=== PATIENT | male | born 1965 | race Caucasian/White ===

== ENCOUNTER 2018-07-09 02:50 | Emergency (ER) | payer OTHER ==
[~2018-07-09] VITALS: Ht 195.6 cm; Wt 122.5 kg
[2018-07-09] MEDS ORDERED: INTELENCE200 MG PO (03:04)
[2018-07-09] MEDS ORDERED: RITONAVIR100 MG PO (03:04)
[2018-07-09] MEDS ORDERED: ISENTRESS400 MG PO (03:04)
[2018-07-09] MEDS ORDERED: SUDOGEST60 MG PO (03:05)
[2018-07-09] MEDS ORDERED: ALTOPREV40 MG PO (03:06)
[2018-07-09] MEDS ORDERED: VENTOLIN HFA18 GM (03:06)
--- NOTE | 2018-07-09 21:36 | EKG ---
[facility] [address] [place], [place] [address] Signed Normal sinus rhythm Normal ECG No previous ECGs available Confirmed by KARIN BROWN MD ([id number]) on 07/09/2018 9:36:40 PM Electronically Signed By: KARIN BROWN MD 07/09/18 2136 PATIENT NAME: ANICETO CEDENO LYNETTE Electrocardiogram DATE OF : 67 PHYSICIAN: KARIN BORWN MD REPORT #: [id number] REPORT IS CONFIDENTIAL AND NOT TO BE RELEASED WITHOUT AUTHORIZATION
== END 2018-07-09 04:37 | disposition home or self-care (01) ==
LOC: ED 02:50
DX: R07.9 Chest pain, unspecified (principal); F17.200 Nicotine dependence, unspecified, uncomplicated; Z88.5 Allergy status to narcotic agent; Z88.0 Allergy status to penicillin; Z79.899 Other long term (current) drug therapy
CPT/HCPCS: 71045; 80053; 84484; 85025; 93005; 93010; 99285; J7030

== ENCOUNTER 2024-07-13 18:00 | Emergency (ER) | payer OTHER ==
[~2024-07-13] VITALS: Ht 195.6 cm; Wt 102.8 kg
[~2024-07-13 18:00] MED LIST: ALTOPREV40 MG PO; INTELENCE200 MG PO; ISENTRESS400 MG PO; RITONAVIR100 MG PO; SUDOGEST60 MG PO; VENTOLIN HFA18 GM
--- OUTSIDE RECORDS SUMMARY | 2024-07-13 18:04 | XMS ---
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 No recent Security Events currently on file CRITERIA MET - Group Notification CARE PROVIDERS -[facility] Dentist: Loss Prevention And Safety Manager Current [place] PHONE: [phone] -[facility] Dentist: Loss Prevention And Safety Manager Current [place] PHONE: [phone] -Ricky- Dentist: Loss Prevention And Safety Manager Current [facility] PHONE: [phone] CHUCKY GILL [facility]/[place]: [facility] PHONE: Unknown EMMANUEL SIMMONS Physician Supervisor Floor Assembly Current PHONE: [phone] Yasir has no Care Guidelines for this patient. Rosangela VISIT COUNT (12 MO.) 1 NAILA Beard TOTAL 1 NOTE: Visits indicate total known visits. ED/UCC VISIT TRACKING (12 MO.) 07/13/2024 18:01 NA[place]A [place] TYPE: Emergency COMPLAINT: - CHEST PAIN INPATIENT VISIT TRACKING (12 MO.) No inpatient visits to display in this time frame [email or web address]
[2024-07-13 18:13] LABS: HEMATOCRIT 46.5 % (35.0-50.0); HEMOGLOBIN 15.3 g/dL (12.0-18.0); MCH 31.4 (27-36); MCHC 32.8 g/dl (30-36); MCV 95.6 fl (81-99); PLATELET COUNT 188 K/uL (140-440); RBC 4.87 M/ul (4.3-5.7); RDW 14.7 (10.5-15.0)
[2024-07-13] MEDS ORDERED: NITROGLYCERIN 0.4 MG SUBL SL PRN ×2 (18:15)
[2024-07-13] MEDS ORDERED: ASPIRIN 81 MG CHEW PO ONE (18:15)
[2024-07-13] MEDS ORDERED: MORPHINE SULFATE 4 MG/ML VIAL IV PRN (18:15)
[2024-07-13] MEDS ORDERED: HEParin SOD (PORCINE) 5,000 UNIT/ML VIAL IV ONE (18:15)
[2024-07-13] MEDS ORDERED: HEPARIN SOD,PORK IN 0.45% NACL 500 ML IV SCH (18:15)
[2024-07-13] MEDS ORDERED: CLOPIDOGREL BISULFATE 75 MG TAB PO SCH (18:15)
[2024-07-13] MEDS ORDERED: ASPIRIN 81 MG CHEW PO SCH (18:15)
[2024-07-13 18:23] LABS: INR 0.98 (0.80-1.30); PROTIME 12.6 Sec (11.2-14.2)
[2024-07-13 18:25] LABS: PARTIAL THROMBOPLASTIN TIME 25.8 Sec (22.9-41.3)
[2024-07-13 18:28] LABS: LYMPHOCYTES, MANUAL DIFF 64; MONOCYTES, MANUAL DIFF 5; NEUTROPHILS, MANUAL DIFF 31
[2024-07-13 18:30] VITALS: BP 127/86
[2024-07-13 18:31] LABS: ALBUMIN 4.1 g/dL (3.4-5.0); ALBUMIN/GLOBULIN RATIO 1.14 (1.1-2.4); ANION GAP 19.1 (7-21); BILIRUBIN, TOTAL 0.4 ng/dL (0.2-1.0); BUN/CREATININE RATIO 14.7 (6.0-28.6); CALCIUM 9.3 mg/dL (8.5-10.1); CREATININE, SERUM 1.36 mg/dL (0.70-1.30); MAGNESIUM 1.9 mg/dL (1.8-2.4); POTASSIUM 3.1 mmol/L (3.5-5.1); PROTEIN, TOTAL 7.7 g/dL (6.4-8.2)
[2024-07-13] MEDS ORDERED: FINASTERIDE5 MG PO (18:39)
[2024-07-13] MEDS ORDERED: METFORMIN HCL500 MG PO (18:40)
[2024-07-13] MEDS ORDERED: OZEMPIC0.25 MG/02 SUB-Q (18:40)
[2024-07-13] MEDS ORDERED: PREZCOBIX 8001 EACH PO (18:40)
[2024-07-13] MEDS ORDERED: BIKTARVY 50-201 EACH PO (18:40)
--- NOTE | 2024-07-15 12:27 | EKG ---
[facility] [address] [facility] [place] [address] Signed Normal sinus rhythm Right bundle branch block ST elevation, consider inferior injury or acute infarct ACUTE [place] / STEMI Consider right ventricular involvement in acute inferior infarct Abnormal ECG When compared with ECG of 09-JUL-2018 02:55, Right bundle branch block is now present Confirmed by Augusto Bowden MD ([id number]) on 07/15/2024 12:27:09 PM Electronically Signed By: AUGUSTO BOWDEN DO 07/15/24 1227 PATIENT NAME: ANICETO CEDENO LYNETTE Electrocardiogram DATE OF : 67 PHYSICIAN: AUGUSTO BOWDEN DO REPORT #: [id number] REPORT IS CONFIDENTIAL AND NOT TO BE RELEASED WITHOUT AUTHORIZATION
== END 2024-07-13 18:30 | disposition short-term general hospital (02) ==
LOC: ED 18:00
PROVIDERS: Emergency Medicine
DX: I21.19 ST elevation (STEMI) myocardial infarction involving other coronary artery of inferior wall (principal); I44.0 Atrioventricular block, first degree; I45.10 Unspecified right bundle-branch block; E78.5 Hyperlipidemia, unspecified; E78.00 Pure hypercholesterolemia, unspecified; F17.200 Nicotine dependence, unspecified, uncomplicated; Z88.0 Allergy status to penicillin; Z88.5 Allergy status to narcotic agent; Z79.899 Other long term (current) drug therapy
CPT/HCPCS: 36415; 71045; 80053; 83735; 84484; 85025; 85610; 85730; 93005; 93010; 99285-25